=== PATIENT | male | born 1990 | race Asian ===

== ENCOUNTER 2018-01-09 14:35 | Outpatient (CLI) | payer OTHER ==
--- NOTE | 2018-01-09 15:49 | MRI ---
MRI OF THE LEFT KNEE WITHOUT CONTRAST: INDICATION: History of acute left knee pain after a fall. Concern for possible patella fracture. FINDINGS: There is a nondisplaced vertically oriented fracture involving the lateral patellar facet with extens ion into the chondral surface. There is a chondral fissure that extends from the fracture site on im age 10 of series 3 measuring approximately 1.4 mm. No additional chondral defect is grossly evident. The ACL, PCL, MCL, and LCLC are intact. The extensor mechanism is intact. The medial and lateral meniscus are intact. Articular cartilage of the femoral tibial compartments is preserved. The IT ba nd and popliteus appear within normal limits. IMPRESSION: 1. Nondisplaced lateral patellar facet fracture with associated chondral fissure involving the later al patellar facet measuring up to 1.4 mm. 2. No additional acute abnormality is seen. POS: [facility]EE
== END 2018-01-09 14:36 | disposition home or self-care (01) ==
LOC: TBSIIMAG 14:35
PROVIDERS: ATTEND Family Medicine Sports Medicine
DX: M25.562 Pain in left knee (principal); S82.092A Other fracture of left patella, initial encounter for closed fracture